=== PATIENT | male | born 1950 | race Asian ===

== ENCOUNTER 2016-09-08 23:41 | Emergency (ER) | payer MEDICARE ==
[~2016-09-08 23:41] MED LIST: ADRENALIN ONE; SODIUM BICARBONATE IV ONE
--- NOTE | 2016-09-08 23:55 | Emergency Department Report ---
HPI - General Time Seen by Provider: 09/08/16 23:48 - HPI HPI: Room 22 The patient is a 66-year-old male presenting with a chief complaint cardiac arrest. Per EMS the patient was in the bathroom when he was found by his to be unresponsive. EMS was called and arrived on scene at 23:06 to find the patient in asystole. The patient was intubated by EMS and ACLS protocols initiated. Patient was administered 3 rounds of epinephrine and one round of sodium bicarbonate prior to arrival. Upon arrival to the ED the patient was still found to be in asystole. ACLS protocols were continued. Per EMS no history was obtainable secondary to language barrier. Location: Cardiovascular system Duration: [see above] Quality: Asystole Severity: Severe Modifying factors: [see above] Context: [see above] Mode of transportation: EMS ED Past Medical Hx - Past Medical History Hx Hypertension: Yes Additional medical history: high cholesterol. afib? - Family History Family history: no significant - Social History Smoking Status: Smoker, Current Status Unknown - Medications Home Medications: Home Medications Medication Instructions Recorded Confirmed Last Taken Type Aspirin [Aspirin BABY CHEW TAB] 81 mg PO QDAY #30 tab.chew 06/08/16 Unknown Rx AtorvaSTATin [Lipitor] 20 mg PO QHS #30 tablet 06/08/16 Unknown Rx Levofloxacin [Levaquin TAB] 750 mg PO Q24HR #7 tablet 06/08/16 Unknown Rx Losartan [Cozaar] 25 mg PO QDAY #30 tablet 06/08/16 Unknown Rx Metoprolol [Lopressor TAB] 50 mg PO DAILY #30 tablet 06/08/16 Unknown Rx Prasugrel [Effient] 10 mg PO QDAY #30 tablet 06/08/16 Unknown Rx Rivaroxaban [Xarelto] 15 mg PO DAILY #30 tablet 06/08/16 Unknown Rx ED Review of Systems ROS: Stated complaint: CARDIAC ARREST Other details as noted in HPI Comment: Unobtainable due to pts medical conditions Physical Exam - Physical Exam Physical Exam: GENERAL: The patient is well-developed well-nourished male lying on stretcher receiving chest compressions and being bagged via ET tube. [] HEENT: Normocephalic. Atraumatic. Pupils 5 mm and nonreactive bilaterally NECK: Supple. Trachea midline CHEST/LUNGS: No spontaneous respirations. Breath sounds equal bilaterally with bagging HEART/CARDIOVASCULAR: No heart sounds. Asystole on monitor ABDOMEN: Abdomen is soft. There is no abdominal distention. SKIN: There is no rash. There is no edema. There is no diaphoresis. NEURO: GCS 3T MUSCULOSKELETAL: There is no evidence of acute injury. ED Medical Decision Making - Differential Diagnosis cardiac arrest Critical care attestation.: If time is entered above; I have spent that time in minutes in the direct care of this critically ill patient, excluding procedure time. ED Disposition Clinical Impression: Cardiac arrest Disposition: DC-20 Is pt being admited?: No Does the pt Need Aspirin: No Condition: Poor Time of Disposition: 23:49 (patient )
== END 2016-09-09 02:30 ==
LOC: ED 23:41
DX: I46.9 Cardiac arrest, cause unspecified (principal); I10 Essential (primary) hypertension; E78.00 Pure hypercholesterolemia, unspecified; Z79.82 Long term (current) use of aspirin
CPT/HCPCS: 82962; 92950; 99285; J0171